=== PATIENT | female | born 1955 | race Caucasian/White ===

== ENCOUNTER 2016-10-28 20:00 | Inpatient (IN) | payer OTHER ==
--- NOTE | ~2016-10-28 | PN ---
Unit #: [id number] #: [id number] Patient: SHYAM MANCERA [id number] [facility] [address] [place] [address] [id number] MR#: [id number] NAME: SHYAM MANCERA ROOM: [facility] Age: 61 Sex: F Admission Date: 10/29/2016 : 1955 Attending Physician: Kathe Luna M.D. Admitting Physician: Kathe Luna M.D. Primary Care Physician: Generic Doctor Not In System [facility] PROGRESS NOTES DATE OF SERVICE 11/02/2016 DISCUSSION Ms. Mancera is a 61-year-old white female with mood disorder and psychosis who was seen today. Chart was reviewed and case was discussed with the staff. She has been anxious and has been exhibiting very bizarre behavior with (1) __ paranoia and has been making comments last night that she wants to sign herself out because she is getting today and on interaction with me, she once again staring at me and eventually kept staring and was unable to ask any questions. As I tried to walk away, she called my name and then stated "I'm getting today." She continues to exhibit some persistent psychosis, paranoia, and thought blocking, and delusional behavior. However, she has been taking the medications though does not appear to be showing a therapeutic response yet. MENTAL STATUS EXAMINATION Middle-aged white female who is casually dressed with fair personal hygiene, appears to be in no acute distress or discomfort. The patient was awake and alert with impaired attention and concentration. Her mood is anxious with congruent affect. Her speech is slow and restricted in content. Her thought processes were disorganized with some looseness of association, thought-blocking, paranoid ideations, and delusional behaviors. Her insight and judgment remain significantly impaired. TREATMENT PLAN 1. We will continue her on her current medications and treatment protocol. We will monitor her response to the medications and make further adjustments as needed. 2. We will continue to follow up. Dictated by... Calin Wood/kd TD: 11/03/2016 10:18 JOB #: [id number] Unit #: [id number] #: [id number] Patient: SHYAM MANCERA PROGRESS NOTES Page 1 of 1 X Kathe Luna MD X PROGRESS NOTE
--- NOTE | ~2016-10-28 | DS ---
Unit #: [id number] #: [id number] Patient: SHYAM MANCERA [id number] [facility] [address] [place] [address] [id number] I MR#: [id number] NAME: SHYAM MANCERA ROOM: [facility] Age: 61 Sex: F Admission Date: 10/29/2016 : 1955 Discharge Date: 11/08/2016 Attending Physician: Kathe Luna M.D. Primary Care Physician: Generic Doctor Not In System DISCHARGE SUMMARY IDENTIFYING DATA Ms. Mancera is a 61-year-old , white female, who is a resident of [place], [place] and was self-referred to the hospital on a voluntary basis. DISCHARGE DIAGNOSES Psychiatric: Schizoaffective disorder, bipolar type, most recent episode depressed, recurrent, moderate, with psychosis. Medical: Hypertension, diabetes mellitus, hypothyroidism. Stressors: Moderate psychosocial stressors. HISTORY OF PRESENT ILLNESS Please see initial psychiatric evaluation for details. PAST PSYCHIATRIC HISTORY Please see initial psychiatric evaluation for details. PAST MEDICAL HISTORY Please see initial psychiatric evaluation for details. HOSPITAL COURSE The [facility] and was oriented to the hospital environment. Routine p.r.n. medications were initiated, and she was started back on her home medications and was seemed to be acutely psychotic with bizarre behavior upon initial presentation, and as such, Zyprexa was initiated at 10 mg b.i.d. However, compliance became an issue as the patient was not taking the medications on a regular basis and then was wanting to go home, and as such, 72 hours hold was initiated and she was encouraged to comply with treatment recommendations including medications. Followed by which, it was decided that she will be discharged home as she was not seemed to be danger to self or anyone else, and will continue treatment on an outpatient basis. DISCHARGE MEDICATIONS Zyprexa 10 mg b.i.d. DISCHARGE CONDITION Stable. PROGNOSIS Fair. Unit #: [id number] #: [id number] Patient: SHYAM MANCERA Dictated by... Kathe Luna M.D. IAA/amadol TD: 11/08/2016 22:21 JOB #: [id number] DISCHARGE SUMMARY Page 1 of 1 X Kathe Luna MD DISCHARGE SUMMARY
--- NOTE | ~2016-10-28 | PN ---
Unit #: [id number] #: [id number] Patient: SHYAM MANCERA [id number] [facility] [address] [place] [address] [id number] I MR#: [id number] NAME: SHYAM MANCERA ROOM: [facility] Age: 61 Sex: F Admission Date: 10/29/2016 : 1955 Attending Physician: Kathe Luna M.D. Admitting Physician: Calin Wood PROGRESS NOTES DATE OF SERVICE: 11/05/2016 SUBJECTIVE Ms. Mancera is a 61-year-old white female, who was seen today and chart was reviewed, and case was discussed with the staff. She has been anxious, withdrawn, depressed, and rather seclusive to herself. Meanwhile, she has been cooperative with treatment recommendations and has been taking the medications and tolerating them fairly well. MENTAL STATUS EXAMINATION Middle-aged white female, who was casually dressed with fair personal hygiene, appears to be in no acute distress or discomfort. She was awake and alert with impaired attention and concentration. Her mood was anxious with congruent affect. She denies any suicidal or homicidal ideations. Her thought processes were disorganized with some looseness of associations and paranoid ideations. Her insight and judgment remain significantly impaired. TREATMENT PLAN 1. We will continue on her current medications and treatment protocol. We will monitor her response and make further adjustments as needed. 2. We will continue to follow up. Dictated by... Calin Wood/amadol TD: 11/06/2016 23:17 JOB #: [id number] [facility] PROGRESS NOTES Page 1 of 1 X Kathe Luna MD X PROGRESS NOTE
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
--- NOTE | ~2016-10-28 | PN ---
Unit #: [id number] #: [id number] Patient: SHYAM MANCERA [id number] [facility] [address] [place] [address] [id number] I MR#: [id number] NAME: SHYAM MANCERA ROOM: 15 Age: 61 Sex: F Admission Date: 10/29/2016 : 1955 Attending Physician: Kathe Luna M.D. Admitting Physician: Kathe Luna M.D. Primary Care Physician: Generic Doctor Not In System [facility] PROGRESS NOTES DATE 10/31/2016 DISCUSSION Ms. Mancera is a 61-year-old white female who was seen today and chart was reviewed and case was discussed with the staff. She has been anxious, withdrawn and rather seclusive to herself. Meanwhile, she has been cooperative with treatment recommendations as she has been taking the medications and tolerating them fairly well with no reported side effects. MENTAL STATUS EXAMINATION Middle-aged white female who was casually dressed with fair personal hygiene, appears to be in no acute distress or discomfort. She was awake and alert on interaction with intact orientation. Her mood was anxious with congruent affect. The patient denies any suicidal or homicidal ideations. Her insight and judgement remains significantly impaired. TREATMENT PLAN 1. We will continue her on her current medications and treatment protocol. We will monitor her response to medications and make further adjustments as needed. 2. We will continue to follow up. Dictated by... Calin Wood/reggie TD: 11/01/2016 03:07 JOB #: [id number] Unit #: [id number] #: [id number] Patient: SHYAM MANCERA [facility] PROGRESS NOTES Page 1 of 1 X Kathe Luna MD PROGRESS NOTE
--- NOTE | ~2016-10-28 | PN ---
Unit #: [id number] #: [id number] Patient: SHYAM MANCERA [id number] [facility] [address] [place] [address] [id number] I MR#: [id number] NAME: SHYAM MANCERA ROOM: 15 Age: 61 Sex: F Admission Date: 10/29/2016 : 1955 Attending Physician: Kathe Luna M.D. Admitting Physician: Kathe Luna M.D. Primary Care Physician: Generic Doctor Not In [facility] PROGRESS NOTES DATE OF SERVICE: 11/03/2016 SUBJECTIVE Ms. Mancera is a 61-year-old white female with mood disorder and psychosis, who was seen today and chart was reviewed and case was discussed with the staff, who reports the patient has been anxious, withdrawn, and disorganized. Meanwhile, she has been taking the medications and tolerating them fairly well with no reported side effects. MENTAL STATUS EXAMINATION Middle-aged white female who was casually dressed with fair personal hygiene and appears to be in no acute distress or discomfort. She was awake and alert on interaction with intact orientation. Her mood was anxious with a congruent affect. She denies any suicidal or homicidal ideations. Her insight and judgment remain slightly impaired. TREATMENT PLAN 1. We will continue her on her current medications and treatment protocol. We will monitor her response to the medications and make further adjustments as needed. 2. We will continue to follow up. Dictated by... Kathe Luna M.D. KIRBY/amadol TD: 11/04/2016 08:20 JOB #: [id number] [facility] PROGRESS NOTES Page 1 of 1 X Kathe Luna MD PROGRESS NOTE
--- NOTE | ~2016-10-28 | PN ---
Unit #: [id number] #: [id number] Patient: SHYAM MANCERA [id number] [facility] [address] [place] [address] [id number] I MR#: [id number] NAME: SHYAM MANCERA ROOM: 15 Age: 61 Sex: F Admission Date: 10/29/2016 : 1955 Attending Physician: Kathe Luna M.D. Admitting Physician: Kathe Luna M.D. Primary Care Physician: Generic Doctor Not In System [facility] PROGRESS NOTES DATE 11/01/2016 DISCUSSION Ms. Mancera is a 61-year-old white female who was seen today and chart was reviewed and case was discussed with the staff. She has been anxious, withdrawn and seclusive to herself. Meanwhile, she has been cooperative with treatment recommendations as she has been taking the medications and tolerating them fairly well with no reported side effects. MENTAL STATUS EXAMINATION Middle-aged white female who was casually dressed with fair personal hygiene, appears to be in no acute distress or discomfort. She was awake and alert on interaction with intact orientation. Her mood was anxious with congruent affect. She denies any suicidal or homicidal ideations. Also, denies any auditory or visual hallucinations. Her insight and judgement remains slightly impaired. TREATMENT PLAN 1. We will continue her on her current medications and treatment protocol. We will monitor her response and make further adjustments as needed. 2. We will continue to follow up. Dictated by... Calin Wood/reggie TD: 11/01/2016 22:15 JOB #: [id number] Unit #: [id number] #: [id number] Patient: SHYAM MANCERA [facility] PROGRESS NOTES Page 1 of 1 X Kathe Luna MD X PROGRESS NOTE
--- NOTE | ~2016-10-28 | PN ---
Unit #: [id number] #: [id number] Patient: SHYAM MANCERA [id number] [facility] [address] [place] [address] [id number] I MR#: [id number] NAME: SHYAM MANCERA ROOM: [facility] Age: 61 Sex: F Admission Date: 10/29/2016 : 1955 Attending Physician: Kathe Luna M.D. Admitting Physician: Kathe Luna M.D. Primary Care Physician: Generic Doctor Not In System [facility] PROGRESS NOTES DATE OF SERVICE 10/30/2016 DISCUSSION Ms. Mancera is a 61-year-old white female with mood disorder and psychosis who was seen today. Chart was reviewed and case was discussed with the staff. She has been anxious, withdrawn though has not shown any agitation or irritability and has been cooperative with treatment recommendations as she has been taking the medications and tolerating them fairly well with no reported side effects. MENTAL STATUS EXAMINATION Middle-aged white female who is casually dressed with fair personal hygiene, appears to be in no acute distress or discomfort. The patient was awake and alert with impaired attention and concentration. Her mood is anxious with congruent affect. She denies any suicidal or homicidal ideations. Her thought processes were disorganized with some looseness of associations, paranoid ideations, and delusional behavior. Her insight and judgment remain significantly impaired. TREATMENT PLAN 1. We will continue her on her current medications and treatment protocol. We will monitor her response to the medications and make further adjustments as needed. 2. We will continue to follow up. Dictated by... Calin Wood/kd TD: 10/31/2016 06:45 JOB #: [id number] Unit #: [id number] #: [id number] Patient: [facility]A [facility] PROGRESS NOT[facility] Page 1 of 1 X Kathe Luna MD PROGRESS NOTE
--- NOTE | ~2016-10-28 | HP ---
Unit #: [id number] #: [id number] Patient: MARYSE GARCIA [id number] [facility] [address] [place] [address] [id number] I MR#: [id number] NAME: MARYSE GARCIA ROOM: P130 Age: 61 Sex: F Admission Date: 10/29/2016 : 1955 Attending Physician: Kathe Luna M.D. Admitting Physician: Kathe Luna M.D. Primary Care Physician: Generic Doctor Not In System HISTORY AND PHYSICAL HISTORY OF PRESENT ILLNESS Maryse is a 61-year-old female admitted on 05/31/[address] [place] [address] for auditory hallucinations that are telling her to commit suicide. PAST MEDICAL HISTORY 1. Seasonal allergies. 2. Type 2 diabetes. 3. Hyperlipidemia. 4. Jonelle disease. PAST SURGICAL HISTORY section x1 and a complete hysterectomy. SOCIAL HISTORY Denies tobacco, alcohol, or illegal drug use. She is currently and living alone. FAMILY HISTORY Noncontributory. REVIEW OF SYSTEMS CONSTITUTIONAL: No fever or chills. HEENT: Denies any sore throat, ear pain or runny nose. CARDIOVASCULAR: Denies chest pain, irregular heart rhythm or palpitations. CHEST: Denies shortness of breath or cough. No hemoptysis. GASTROINTESTINAL: Denies nausea, vomiting, diarrhea or chronic constipation. ENDOCRINE: Denies history of increased thirst or urination. No recent significant weight loss or gain. GENITOURINARY: Denies dysuria, frequency, or hematuria. SKIN: Denies any rashes. HEMATOLOGIC: Denies history of increased bleeding or bruising. MUSCULOSKELETAL: Denies any hot, swollen joints. No generalized muscle pain. NEUROLOGIC: Denies problems with vision or speech. No frequent, severe headaches. No numbness, tingling or weakness in any extremities. Denies loss of bladder or bowel control. CURRENT MEDICATIONS Lisinopril, metformin, Synthroid, amitriptyline, Seroquel, Zyprexa, hydroxyzine, carbamazepine, vitamin D. ALLERGIES Unit #: [id number] #: [id number] Patient: MARYSE GARCIA Sulfa and codeine. PHYSICAL EXAMINATION GENERAL: Alert, oriented, no acute distress. VITAL SIGNS: Blood pressure 130/82, heart rate 82, respirations 16, temperature 97.2. SKIN: Warm, dry. No rashes or lesions, track white, cuts, etc. HEENT: Normocephalic. TMs not viewed. Oronasal passages clear. Conjunctivae clear. PERRLA. EOM is intact. NECK: No lymphadenopathy or thyromegaly. HEART: Regular rate and rhythm. No murmur, gallop, or rub. LUNGS: Clear to auscultation bilaterally. ABDOMEN: Soft, nontender without palpable masses or hepatosplenomegaly. : Not assessed. EXTREMITIES: No evidence of cyanosis, clubbing, or edema. Moves all extremities independently without obvious deficit. NEUROLOGICAL: Grossly within normal limits. Cranial Nerves: II: Visual mccartney are intact. III, IV AND : Extraocular movements are intact. Pupils are equal, round and reactive to light. V: Facial sensation is grossly normal. VII: Facial movements and expression are normal. VIII: Auditory acuity grossly intact. IX, X: Uvula is midline. Phonation is normal. XI: Patient shrugs shoulders and turns head normally. XII: Tongue protrudes in the midline. Sensory and Motor Function: Sensory and motor sensation is grossly normal. Motor: moves all extremities well. Coordination: Gait is normal. Deep Tendon Reflexes: Intact. IMPRESSION 1. Psychiatric admission. 2. Seasonal allergies. 3. Type 2 diabetes. 4. Hyperlipidemia. 5. Jonelle disease. RECOMMENDATIONS PSYCHIATRIC: Per psychiatrist. MEDICAL: No contraindication to participating in this facility's activities. MEDICAL PROGNOSIS Good. MEDICAL CONDITION Stable. Dictated by... Anastacia JoyRLi Gregg TD: 10/29/2016 14:34 JOB #: [id number] Unit #: [id number] #: [id number] Patient: MARYSE GARCIA HISTORY AND PHYSICAL Page 1 of 1 X JOHNNIE AUGUSTINE APRN HISTORY AND PHYSICAL
--- NOTE | ~2016-10-28 | PN ---
Unit #: [id number] #: [id number] Patient: SHYAM MANCERA [id number] [facility] [address] [place] [address] [id number] MR#: [id number] NAME: SHYAM MANCERA ROOM: [facility] Age: 61 Sex: F Admission Date: 10/29/2016 : 1955 Attending Physician: Kathe Luna M.D. Admitting Physician: Kathe Luna M.D. Primary Care Physician: Generic Doctor Not In System [facility] PROGRESS NOTES DATE 11/04/2016 DISCUSSION Ms. Mancera is a 61-year-old white female who was seen today and chart was reviewed and case was discussed with the staff. She remains anxious, withdrawn, disorganized and rather seclusive to herself. Meanwhile, she has not shown any agitation and aggression. She has been taking medications and tolerating them fairly well with no reported side effects. MENTAL STATUS EXAMINATION Middle-aged white female who was casually dressed with fair personal hygiene, appears to be in no acute distress or discomfort. She was awake and alert on interaction with intact orientation. Her mood was anxious with congruent affect. Her speech was slow and restricted in content. The patient denies any suicidal or homicidal ideations. Also, denies any auditory or visual hallucinations. Her insight and judgement remains significantly impaired. TREATMENT PLAN 1. We will continue her on her current medications and treatment protocol. We will monitor her response and make further adjustments as needed. 2. We will continue to follow up. Dictated by... Calin Wood/reggie TD: 11/05/2016 08:17 JOB #: [id number] Unit #: [id number] #: [id number] Patient: SHYAM MANCERA [facility] PROGRESS NOTES Page 1 of 1 X Kathe Luna MD PROGRESS NOTE
--- NOTE | ~2016-10-28 | PN ---
Unit #: [id number] #: [id number] Patient: SHYAM MANCERA [id number] [facility] [address] [place] [address] [id number] MR#: [id number] NAME: SHYAM MANCERA ROOM: [facility] Age: 61 Sex: F Admission Date: 10/29/2016 : 1955 Attending Physician: Kathe Luna M.D. Admitting Physician: Kathe Luna M.D. Primary Care Physician: Generic Doctor Not In System [facility] PROGRESS NOTES DATE November 07, 2016 DISCUSSION Ms. Mancera is a 61-year-old white female, who was seen today and chart was reviewed and the case was discussed with the staff. She remains anxious, withdrawn, and rather seclusive to herself, with bizarre behavior and looseness of associations and increasing bizarre behavior, not following recommendations and poor medication compliance. Meanwhile, she has been showing no agitation and aggression. MENTAL STATUS EXAMINATION Middle-aged white female, who was casually dressed with fair personal hygiene and appears to be in no acute distress or discomfort. She was awake and alert with impaired attention and concentration. Her mood was anxious with a congruent affect. Her speech is slow and tangential. Her thought processes are disorganized with some looseness of associations, and paranoid ideations. Her insight and judgment remain significantly impaired. TREATMENT PLAN 1. We will continue her on her current medications and treatment protocol, and will monitor her response, and make further adjustments as needed. 2. We will continue to followup. Dictated by... Calin Wood/edil TD: 11/08/2016 13:25 JOB #: [id number] Unit #: [id number] #: [id number] Patient: SHYAM MANCERA [facility] PROGRESS NOTES Page 1 of 1 X Kathe Luna MD PROGRESS NOTE
--- NOTE | ~2016-10-28 | PN ---
Unit #: [id number] #: [id number] Patient: SHYAM MANCERA [id number] [facility] [address] [place] [address] [id number] MR#: [id number] NAME: SHYAM MANCERA ROOM: [facility] Age: 61 Sex: F Admission Date: 10/29/2016 : 1955 Attending Physician: Kathe Luna M.D. Admitting Physician: Kathe Luna M.D. Primary Care Physician: Generic Doctor Not In System [facility] PROGRESS NOTES DATE 11/06/2016 DISCUSSION Ms. Mancera is a 61-year-old white female who was seen today and chart was reviewed and case was discussed with the staff. She has been anxious, withdrawn, disorganized and keeps coming to me stating that she wants to go and she can go home today and then staff informed me that she has been refusing to talk her medication and when confronted about that, the patient was unable to give any meaningful conversation. Has been seen to be in a very bizarre behavior with acute psychosis. MENTAL STATUS EXAMINATION Middle-aged white female who was casually dressed with fair personal hygiene, appears to be in no acute distress or discomfort. She was awake and alert with impaired attention and concentration. He mood was anxious with congruent affect. Her speech was slow and tangential. Her thought process was disorganized with some looseness of associations and flight of ideas. Her insight and judgement (1) and we will encourage her to show a better compliance with treatment recommendations. 2. We will continue to follow up. Dictated by... Calin Wood/reggie TD: 11/07/2016 05:02 JOB #: [id number] Unit #: [id number] #: [id number] Patient: SHYAM MANCERA [facility] PROGRESS NOTES Page 1 of 1 X Kathe Luna MD PROGRESS NOTE
[~2016-10-28 20:00] MED LIST: ADDERALL PO; AMITRYPTYLINE PO; CLINDAMYCIN HC300 MG PO; CYMBALTA30 MG PO; FISH OIL 1,0001 CAP PO; LEVAQUIN PO; LISINOPRIL PO; METFORMIN PO; MULTIVITAMIN1 UDCAP PO; NASONEX17 GM; PHENERGAN PO; PRILOSEC PO; SYNTHROID PO; VICODIN 5/500 T1 TAB PO; ZESTRIL5 MG PO
[2016-10-30 11:23] LABS: BASOPHIL% 0.7 % (0-2.5); EOSINOPHIL% 0.3 % (0.0-7.0); HEMATOCRIT 41.2 % (35.0-45.0); HEMOGLOBIN 13.6 gm/dL (12.0-16.0); LYMPHOCYTE# 1.5 X10e3 (1.0-3.5); LYMPHOCYTE% 19.7 % (17.0-45.0); MEAN CELL VOLUME 90.4 FL (83-96); MEAN CORPUSCULAR HEMOGLOBIN 29.9 PG (28-34); MEAN CORPUSCULAR HGB CONC 33.1 g/dL (30-36); MEAN PLATELET VOLUME 8.2 FL (6.5-11.5); MONOCYTE# 0.6 X10e3 (0-1.0); MONOCYTE% 8.1 % (3.0-12.0); NEUTROPHIL# 5.4 X10e3 (1.5-7.1); NEUTROPHIL% 71.2 % (40-75); PLATELET COUNT 254 X10e3 (140-420); RED BLOOD COUNT 4.56 X10e (3.90-5.30); RED CELL DISTRIBUTION WIDTH 12.3 % (11.0-15.5); WHITE BLOOD COUNT 7.5 X10e3 (4.0-10.5)
[2016-10-30 11:35] LABS: DIFF IND NO
[2016-10-30 11:48] LABS: THYROID STIMULATING HORMONE 2.99 uIU/ml (0.34-5.60)
[2016-10-30 11:55] LABS: FREE THYROXIN (T4) 0.93 ng/dL (0.58-1.64)
[2016-10-30 12:01] LABS: ALBUMIN SERUM 4.7 g/dL (3.5-5.0); BILIRUBIN,TOTAL 0.4 mg/dL (0.2-2.0); BUN/CREATININE RATIO 44.28; CREATININE SERUM 0.7 mg/dL (0.6-1.4); GLOM FILT RATE Estimated 94.8 mL/min (>60); POTASSIUM 4.9 mmol/L (3.5-5.1); PROTEIN TOTAL SERUM 7.7 g/dL (6.0-8.3)
== END 2016-11-08 10:00 | DRG 885 ==
LOC: P1S 10-29 07:13 → POF 10-29 12:58 → P1S 10-29 13:01 → POF 11-06 06:39 → P1S 11-06 06:42 → POF 11-06 10:54 → P1S 11-06 11:03
PROVIDERS: Psychiatry & Neurology Psychiatry
DX: F25.0 Schizoaffective disorder, bipolar type (principal); F31.32 Bipolar disorder, current episode depressed, moderate; I10 Essential (primary) hypertension; F29 Unspecified psychosis not due to a substance or known physiological condition; E11.9 Type 2 diabetes mellitus without complications; E03.9 Hypothyroidism, unspecified; E06.3 Autoimmune thyroiditis; Z90.710 Acquired absence of both cervix and uterus
CPT/HCPCS: 80053; 84439; 84443; 85025